=== PATIENT | female | born 1965 | race Caucasian/White ===

== ENCOUNTER → 2017-01-13 | Outpatient (CLI) | payer BC ==
[~2017-01-13] MED LIST: FLEXERIL5 MG PO; LORTAB 5/500 501 TAB PO
--- NOTE | 2017-01-14 17:39 | RADIOLOGY REPORT PS360 ---
DIG MAMM-SCREEN MURRAY W/CAD CAD Screening COMPARISON: Digital mammograms 12/20/2011 and 10/11/2013 INDICATION: There is a history of breast cancer in the patient's paternal aunt TECHNIQUE: Standard CC and MLO images were obtained. R2 CAD reviewed. FINDINGS: Again noted is a diffusely dense and heterogenic parenchymal pattern somewhat lessening the sensitivity of mammography. There are stable asymmetric fibroglandular density deep within the central portion left breast there is no new or suspicious lesion in either breast and there are no suspicious microcalcifications. IMPRESSION: Stable exam with prominent heterogenic breast density with no suspicious lesion seen BI-RADS CATEGORY: 1_Negative RECOMMENDED FOLLOWUP: 12M 12 MONTH FOLLOW-UP (A letter has been sent to the patient regarding results of the study.)
== END ==
LOC: NEURO 13:38 → RAD 16:00
DX: Z12.31 Encounter for screening mammogram for malignant neoplasm of breast (principal); R20.2 Paresthesia of skin
CPT/HCPCS: G0202